=== PATIENT | female | born 1995 | race Caucasian/White ===

== ENCOUNTER 2019-08-14 20:27 | Inpatient (IN) | payer BC, SELFPAY ==
--- NOTE | 2019-08-14 20:18 | W.PM.HP.N ---
History of Present Illness 24 yo at 40 5/7 with active labor for past 2-3 hrs. Intact membranes, GBS neg. Steady cervical change today - 1-2 this am, 3-4 this pm and now 7-8/100%/0 station, vtx, intact feels well, no nausea, no visual changes, no vanegas no meds save pn vits labs are nl - sonos too - see chart o: vitals good alert, comfortable between ctx, lungs - celar cv s- reg, no murmur abd - firm mod intensity ctx q 4-5, fundus ~38 ext - no edema, nl sensation cervix as above per RN FHT/NST - category 1 Ass: low risk for shoulder dystocia - well engaged/low station/3400 gm estimated wt maternal and well being active labor Plan: Expect excellent support, walk, nitrous S. [place]
[2019-08-14 20:19] LABS: HCT 37.4 % (36.0-46.0); HGB 12.6 g/dL (12.0-15.5); Mean Corp. HGB Concentration 33.7 g/dL (32.0-36.0); Mean Corpuscular Hemoglobin 30.7 pg (27.0-33.0); Mean Platelet Volume 10.1 fL (8.0-11.0); Platelet Count 232 x1000/uL (130-400); RBC 4.11 m/cumm (4.00-5.20); White Blood Cell Count 13.02 k/cumm (4.4-10.8)
[2019-08-15] MEDS: Oxytocin 10 UNITS/ML VIAL IM (01:14)
[2019-08-15] MEDS: Ibuprofen 600 MG TAB PO ×2 (05:45→14:18)
[2019-08-15 07:19] LABS: HCT 33.8 % (36.0-46.0); HGB 11.4 g/dL (12.0-15.5); Mean Corp. HGB Concentration 33.7 g/dL (32.0-36.0); Mean Corpuscular Hemoglobin 30.4 pg (27.0-33.0); Mean Corpuscular Volume 90.1 fL (80-95); Mean Platelet Volume 10.2 fL (8.0-11.0); Platelet Count 219 x1000/uL (130-400); RBC 3.75 m/cumm (4.00-5.20); RBC Distribution Width 13.1 % (11.7-14.6); White Blood Cell Count 15.67 k/cumm (4.4-10.8)
[2019-08-15] MEDS: Acetaminophen 325 MG TAB 650 MG PO (14:18)
[2019-08-16] MEDS: Ibuprofen 600 MG TAB PO (09:50)
[2019-08-16] MEDS: Acetaminophen 325 MG TAB 650 MG PO (09:50)
== END 2019-08-16 12:50 | disposition home or self-care (01) | DRG 807 ==
PROVIDERS: Admitting Provider Family Medicine; PCP Family Medicine; Visit Provider Family Medicine
DX: O48.0 Post-term pregnancy (principal); Z37.0 Single live birth; Z3A.40 40 weeks gestation of pregnancy; O69.81X0 Labor and delivery complicated by cord around neck, without compression, not applicable or unspecified; O70.0 First degree perineal laceration during delivery
CPT/HCPCS: 36415; 85027; 86850; 86900; 86901; 99223; J2590